=== PATIENT | male | born 1980 | race Caucasian/White ===

== ENCOUNTER 2021-06-22 01:35 | Emergency (ER) | payer OTHER ==
[~2021-06-22] VITALS: Ht 182.9 cm; Wt 90.7 kg
--- NOTE | 2021-06-22 01:38 | NUR ---
BIBS FOR C/O PALPITATION S/P WOKE UP FROM A BAD DREAM DENIES CP. PATIENT ALERT AND ORIENTED X3. AMBULATORY WITH NON LABORED BREATHING. PATIENT IN BED 10 ON MONITOR AND POX, AWAITING MD COYNE.
--- NOTE | 2021-06-22 01:50 | NUR ---
MD 2 BEDSIDE FOR EVAL.
--- NOTE | 2021-06-22 01:56 | NUR ---
EMT @ BEDSIDE FOR EKG.
--- NOTE | 2021-06-22 02:15 | NUR ---
ER BAKER BISCUIT @ BEDSIDE.
[2021-06-22 02:35] LABS: BASOPHILS # (AUTO) 0.1 K/uL (0.0-0.2); EOSINOPHILS % (AUTO) 3.6 % (0.0-6.0); HEMATOCRIT 42 % (39-51); HEMOGLOBIN 13.8 g/dL (13.5-17.5); LYMPHOCYTES # (AUTO) 3.1 K/uL (0.8-4.8); LYMPHOCYTES % (AUTO) 39.5 % (20.0-44.0); MEAN CORPUSCULAR HGB CONC 33 g/dl (31.0-36.0); MEAN CORPUSCULAR VOLUME 91 fL (80-96); MONOCYTES # (AUTO) 0.6 K/uL (0.1-1.30); MONOCYTES % (AUTO) 7.1 % (2.0-12.0); NEUTROPHILS # (AUTO) 3.8 K/uL (1.8-8.9); NEUTROPHILS % (AUTO) 48.8 % (43.0-81.0); PLATELET COUNT (AUTO) 284 K/uL (150-450); RED BLOOD CELL COUNT(AUTO) 4.56 MIL/uL (4.5-6.0); WHITE BLOOD COUNT (AUTO) 7.8 K/uL (4.3-11.0)
[2021-06-22 02:48] LABS: CREATININE 1.2 mg/dL (0.6-1.3)
[2021-06-22 03:36] VITALS: BP 131/80
--- NOTE | 2021-06-22 03:36 | NUR ---
Patient discharged to home in stable condition. Written and verbal after care instructions given. Patient verbalizes understanding of instruction.
== END 2021-06-22 03:36 | disposition home or self-care (01) ==
LOC: ER 01:49
DX: R00.2 Palpitations (principal)
CPT/HCPCS: 36415; 80048-TC; 85025-TC